=== PATIENT | female | born 1980 | race Caucasian/White ===

== ENCOUNTER 2021-11-09 05:32 | Day surgery (SDC) | payer MEDICAID ==
[2021-11-06 12:12] LABS: BASOPHILS % (AUTO) 0.6 % (0.0-5.0); LYMPHOCYTES % (AUTO) 32.8 % (21.0-51.0); MEAN CORPUSCULAR HEMOGLOBIN 28.1 pg (27.0-33.0); MEAN CORPUSCULAR VOLUME 87.8 fL (79-99); NEUTROPHILS % (AUTO) 52.2 % (40.0-77.0); PLATELET COUNT (AUTO) 269 K/uL (130-400); RED BLOOD CELL COUNT(AUTO) 4.67 MIL/uL (4.00-5.50); RED CELL DISTRIBUTION WIDTH 14.6 % (11.0-15.5); WHITE BLOOD COUNT (AUTO) 4.6 K/uL (4.8-10.8)
[2021-11-06 12:20] LABS: APPEARANCE,URINE Cloudy (CLEAR); BILIRUBIN,URINE Negative (NEGATIVE); COLOR,URINE Yellow (YELLOW); GLUCOSE, URINE (UA) Negative (NEGATIVE); KETONES,URINE Trace mg/dL (NEGATIVE); LEUKOCYTE ESTERASE ,URINE Trace (NEGATIVE); NITRATE,URINE Negative (NEGATIVE); OCCULT BLOOD,URINE Negative (NEGATIVE); PROTEIN,URINE POS 1+ mg/dL (NEGATIVE); UROBILINOGEN,URINE 0.2 mg/dL (0.2-1.0)
[2021-11-06 12:35] LABS: BACTERIA,URINE Rare /HPF (None Seen); RBC,URINE 0-1 /HPF (0-1); SQUAMOUS EPITHELIAL CELL,UR Rare /HPF (0-2); WBC,URINE 0-1 /HPF (0-1)
[2021-11-06 14:04] VITALS: BP 95/61
[2021-11-09] VITALS (17 sets, daily range): BP systolic 74–116; BP diastolic 35–66
[~2021-11-09] VITALS: Ht 170.2 cm; Wt 60.4 kg
[~2021-11-09 05:32] MED LIST: LACTATED RINGERS 1000ML 1,000 ML IV SCH
[2021-11-09] MEDS ORDERED: ACETIC ACID 0.25% 1,000 ML IRRIG.SOLN ONE (06:37)
[2021-11-09] MEDS ORDERED: STRONG IODINE SOLN 14ML BOTTLE ONE (06:38)
[2021-11-09] MEDS ORDERED: FAMOTIDINE 20MG VIAL IV ONE (06:43)
[2021-11-09] MEDS ORDERED: PROPOFOL 10 MG/ML 20ML VIAL IV ONE (06:48)
[2021-11-09] MEDS ORDERED: LIDOCAINE PF 100MG/5ML (2%) SYRINGE 5ML ONE (06:48)
[2021-11-09] MEDS ORDERED: FENTANYL CITRATE PF 50 MCG/1 ML 2ML VIAL ONE (06:49)
[2021-11-09] MEDS ORDERED: ONDANSETRON 4MG INJ ONE (06:51)
[2021-11-09] MEDS ORDERED: STRONG IODINE SOLN 14ML BOTTLE TP ONE (07:08)
[2021-11-09] MEDS ORDERED: MEPERIDINE-PF 25 MG/ML SYG ONE (07:12)
== END 2021-11-09 09:15 | disposition home or self-care (01) ==
LOC: DAH 05:32
PROVIDERS: ATTEND Obstetrics & Gynecology
DX: R87.613 High grade squamous intraepithelial lesion on cytologic smear of cervix (HGSIL) (principal); N72 Inflammatory disease of cervix uteri; Z79.899 Other long term (current) drug therapy
CPT/HCPCS: 36415 ×2; 57520; 81001; 84703; 85025; 86850 ×2; 86900 ×2; 86901 ×2; 87635; 88307; 88341; 88342; A4215; A4221; A4222; A4223; A4335; A4351; A4663; A6260; C9803; J2175; J2405; J3010; J3490 ×2; J7120 ×2; S0028; J2001; J2704